=== PATIENT | female | born 1990 | race Caucasian/White ===

== ENCOUNTER 2023-04-23 08:00 | Outpatient (CLI) | payer BC | END 2023-04-23 23:59 | disposition home or self-care (01) | LOC: LAB.N 08:00 | PROVIDERS: ATTEND Physician Assistant | DX: J02.9 Acute pharyngitis, unspecified (principal) | CPT/HCPCS: 87070; 87077 ==

== ENCOUNTER 2023-11-24 09:15 | Outpatient (CLI) | payer BC ==
[2023-11-24 14:56] LABS: INFLUENZA A- RESP PCR PANEL NOT DETECTED; INFLUENZA B - RESP PCR PANEL NOT DETECTED; RSV- RESP PCR PANEL NOT DETECTED
[2023-11-24 15:03] LABS: SARS-CoV-2 -RESP PCR PANEL DETECTED
== END 2023-11-24 09:30 | disposition home or self-care (01) ==
LOC: LAB.N 09:15
PROVIDERS: ATTEND Family Medicine
DX: U07.1 COVID-19 (principal)
CPT/HCPCS: 87637

== ENCOUNTER 2024-03-23 08:40 | Outpatient (CLI) | payer BC | END 2024-03-23 08:41 | disposition home or self-care (01) | LOC: LAB.N 08:40 | PROVIDERS: ATTEND Family Medicine | DX: L68.0 Hirsutism (principal); E55.9 Vitamin D deficiency, unspecified; E66.01 Morbid (severe) obesity due to excess calories; F41.9 Anxiety disorder, unspecified | CPT/HCPCS: 36415; 84402; 84403 ==